=== PATIENT | female | born 1960 | race Caucasian/White ===

== ENCOUNTER → 2017-04-04 | Outpatient (CLI) | payer MEDICAID ==
[~2017-04-04] MED LIST: ALBU8.5H5 INH; ALPR1TAB2 PO; ASPI-770 PO; BACL-19 PO; CYCL-259 PO; DICL50TA4 PO; DULO30CA2 PO; LOSA50TA6 PO; METH4TAB2 PO; ONDA-39 PO; OXYC10TA6 PO; SIMV20TA3 PO; TRAM50TA2 PO
== END | disposition home or self-care (01) ==
LOC: CFH 13:07
PROVIDERS: ATTEND Family Medicine
DX: N63 Unspecified lump in breast (principal); Z80.3 Family history of malignant neoplasm of breast
CPT/HCPCS: 76641; G0204

== ENCOUNTER → 2017-06-25 | Outpatient (CLI) | payer MEDICAID ==
[~2017-06-25] MED LIST changes: -ONDA-39 PO; +ONDA4TAB12 PO
== END | disposition home or self-care (01) ==
LOC: CFH 12:46
PROVIDERS: ATTEND Family Medicine
DX: E04.9 Nontoxic goiter, unspecified (principal)
CPT/HCPCS: 76536

== ENCOUNTER → 2018-04-23 | Outpatient (CLI) | payer MEDICAID ==
[~2018-04-23] MED LIST changes: -ASPI-770 PO; +ASPI81TA59 PO
== END | disposition home or self-care (01) ==
LOC: CFH 12:36
PROVIDERS: ATTEND Family Medicine
DX: Z12.2 Encounter for screening for malignant neoplasm of respiratory organs (principal); M25.552 Pain in left hip; I25.10 Atherosclerotic heart disease of native coronary artery without angina pectoris; F17.210 Nicotine dependence, cigarettes, uncomplicated; K57.30 Diverticulosis of large intestine without perforation or abscess without bleeding
CPT/HCPCS: 73721; G0297

== ENCOUNTER → 2018-09-01 | Outpatient (CLI) | payer MEDICAID ==
[~2018-09-01] MED LIST changes: -LOSA50TA6 PO; +LOSA50TA7 PO; +OMNIPAQUE 350 MG/ML, 100ML BOTTLE ONE
== END | disposition home or self-care (01) ==
LOC: CFH 12:55
PROVIDERS: ATTEND Family Medicine
DX: K57.30 Diverticulosis of large intestine without perforation or abscess without bleeding (principal); M62.08 Separation of muscle (nontraumatic), other site; K76.0 Fatty (change of) liver, not elsewhere classified; K43.9 Ventral hernia without obstruction or gangrene
CPT/HCPCS: 74177; 82565; Q9967

== ENCOUNTER 2018-12-13 12:09 | Emergency (ER) | payer MEDICAID ==
[~2018-12-13] VITALS: Ht 170.2 cm; Wt 107.9 kg
[~2018-12-13 12:09] MED LIST changes: +LOSA50TA14 PO; -LOSA50TA7 PO; -OMNIPAQUE 350 MG/ML, 100ML BOTTLE ONE
[2018-12-13] MEDS ORDERED: ONDANSETRON ODT 4 MG PO ONE (12:30)
--- NOTE | 2018-12-13 12:59 | NUR ---
pt to room from lobby
[2018-12-13] MEDS ORDERED: ONDANSETRON ODT 4 MG ONE (13:08)
--- NOTE | 2018-12-13 13:12 | NUR ---
pt presents to ED with c/o n/v/d and left upper abd pain present since 0400 this am. pt medicated per emar, tolerated well. pt instructed to provide clean catch ua, pt up to bathroom with steady gait to attempt at this time. pt has had no vomiting or diarrhea since arrival to room. family at bedside.
[2018-12-13 13:13] LABS: BASOPHILS # (AUTO) 0.06 x10^3/uL (0-0.1); BASOPHILS % (AUTO) 0 % (0-1); EOSINOPHILS # (AUTO) 0.14 x10^3/uL (0-0.4); EOSINOPHILS % (AUTO) 1 % (1-7); LYMPHOCYTES # (AUTO) 0.96 x10^3/uL (1-3.4); LYMPHOCYTES % (AUTO) 6 % (22-44); MD NO; MEAN CORPUSCULAR HEMOGLOBIN 31.3 pg (27.0-34.8); MEAN CORPUSCULAR HGB CONC 34.4 g/dL (32.4-35.8); MEAN CORPUSCULAR VOLUME 90.9 fL (80-100); MEAN PLATELET VOLUME 7.8 fL (7.4-10.4); MONOCYTES # (AUTO) 0.63 x10^3/uL (0.2-0.8); MONOCYTES % (AUTO) 4 % (2-9); NEUTROPHILS # (AUTO) 14.21 x10^3/uL (1.8-6.8); NEUTROPHILS % (AUTO) 89 % (42-75); PLATELET COUNT 359 x10^3/uL (130-400); RED BLOOD COUNT 5.34 x10^6/uL (3.82-5.3); RED CELL DISTRIBUTION WIDTH 12.7 % (9.6-15.2)
[2018-12-13 13:24] LABS: ALBUMIN 4.5 g/dL (3.4-5.0); ANION GAP 8 mmol/L (5-15); CALCIUM 9.5 mg/dL (8.5-10.1); CHLORIDE 102 mmol/L (98-107)
[2018-12-13] MEDS ORDERED: SODIUM CHLORIDE FLUSH 10ML SYR IVF ONE (13:30)
[2018-12-13] MEDS ORDERED: FAMOTIDINE 20 MG/2 ML IVP ONE (13:30)
[2018-12-13] MEDS ORDERED: SODIUM CHLORIDE 0.9% 1,000ML IVBOLUS ONE (13:30)
[2018-12-13 13:31] LABS: ALANINE AMINOTRANSFERASE 33 U/L (12-78); ALKALINE PHOSPHATASE 110 U/L (45-117); BILIRUBIN,TOTAL 0.8 mg/dL (0.2-1.0); CREATININE 1.31 mg/dL (0.55-1.02); TOTAL PROTEIN 8.9 g/dL (6.4-8.2)
[2018-12-13 13:37] LABS: MICROSCOPIC INDICATED
[2018-12-13 13:44] LABS: CULTURE INDICATED? YES
[2018-12-13] MEDS ORDERED: FAMOTIDINE 20 MG/2 ML ONE (13:55)
--- NOTE | 2018-12-13 14:30 | NUR ---
pt resting on gurney, resps even and unlabored. ivf infusing, pt tolerating well.
[2018-12-13 15:22] VITALS: BP 131/87
--- NOTE | 2018-12-13 15:30 | NUR ---
pt given dc instructions and script. pt educated regarding zofran rx. no n/v/d at time of dc. pt a&o, resps even and unlabored. iv dc'd with tip intact. pt amb to dc desk with steady gait, nadn.
== END 2018-12-13 15:30 | disposition home or self-care (01) ==
LOC: ED 13:55
DX: R11.2 Nausea with vomiting, unspecified (principal); R19.7 Diarrhea, unspecified; E86.0 Dehydration; F17.200 Nicotine dependence, unspecified, uncomplicated; E78.00 Pure hypercholesterolemia, unspecified; I50.9 Heart failure, unspecified; I11.0 Hypertensive heart disease with heart failure; I25.2 Old myocardial infarction
CPT/HCPCS: 36415; 74021; 80053; 81001; 83690; 85025; 87086; 96361; 96374; 99284; J3490; J7030; Q0162